=== PATIENT | female | born 1990 | race African-American/Black ===

== ENCOUNTER 2018-11-24 15:58 | Emergency (ER) | payer OTHER | END 2018-11-24 16:35 | disposition home or self-care (01) | LOC: SCSER 15:58 | DX: R10.13 Epigastric pain (principal); I10 Essential (primary) hypertension; F17.210 Nicotine dependence, cigarettes, uncomplicated | CPT/HCPCS: 99283 ==

== ENCOUNTER 2018-12-12 08:04 | Outpatient (CLI) | payer OTHER ==
--- NOTE | 2018-12-12 10:01 | ULT ---
GALLBLADDER ULTRASOUND: HISTORY: Epigastric pain. FINDINGS: The gallbladder has a normal sonographic appearance. No evidence of gallstones. The common duct is normal caliber measured at 2 mm. Visualized liver and right kidney appear unremarkable. The pancrea s is partially imaged and appears unremarkable as visualized. IMPRESSION: Unremarkable gallbladder ultrasound. POS: [facility]
== END 2018-12-12 08:05 | disposition home or self-care (01) ==
LOC: BICULT 08:04
PROVIDERS: ATTEND Physician Assistant Medical
DX: R10.13 Epigastric pain (principal)
CPT/HCPCS: 76705

== ENCOUNTER 2021-06-23 08:37 | Outpatient (CLI) | payer OTHER | END 2021-06-23 08:38 | disposition home or self-care (01) | LOC: BICULT 08:37 | PROVIDERS: ATTEND Family Medicine | DX: N93.9 Abnormal uterine and vaginal bleeding, unspecified (principal) | CPT/HCPCS: 76856; 93976 ==